=== PATIENT | female | born 1980 | race African-American/Black ===

== ENCOUNTER 2019-02-06 15:48 | Emergency (ER) | payer OTHER ==
--- NOTE | 2019-02-06 16:36 | ED Physician Documentation ---
PD HPI URI - Stated complaint Stated Complaint: COUGH/SOA - Chief complaint Chief Complaint: Resp - History obtained from History obtained from: Patient - History of Present Illness Timing - onset: How many weeks ago (1-2) Timing duration: Weeks (1-2) Associated symptoms: Fever Contributing factors: Travel. No: Sick contact, COPD / asthma Similar symptoms before: Diagnosis (had post cardiomyopathy with CHF in [place] this past year. Had EF 18%. has been doing well on beta court and diuretic. Had repeat U/S a month or so ago without much change in EF, per patient.) Recently seen: Not recently seen, Other (is moved from [place] to now [facility] (here on [facility]) and is due to be seen by [facility], with ECHO and lab tests to [place] done, this coming frit) Review of Systems Constitutional: denies: Fever, Chills, Myalgias Nose: denies: Rhinorrhea / runny nose, Congestion Cardiac: reports: Chest pain / pressure. denies: Palpitations, Pedal edema, Calf pain Respiratory: denies: Dyspnea, Cough, Hemoptysis GI: denies: Abdominal Pain, Nausea Musculoskeletal: denies: Neck pain, Back pain Neurologic: denies: Generalized weakness, Focal weakness, Numbness Endocrine: reports: Weight gain (10 lbs in the past month) PD PAST MEDICAL HISTORY - Past Medical History Cardiovascular: Congestive heart failure (due to cardiomyopathy. Delivered Dec last year, and had slowly worse) Respiratory: None Neuro: None Endocrine/Autoimmune: None GI: None - Present Medications Home Medications: Ambulatory Orders Medication Instructions Recorded Confirmed Albuterol Sulf [Ventolin Hfa 1 - 2 puffs INH Q4HR PRN #1 inhaler 02/06/19 Inhaler] Duloxetine HCl 02/06/19 Furosemide 60 mg PO BID 02/06/19 02/06/19 Spironolactone 02/06/19 - Allergies Allergies/Adverse Reactions: Allergies Allergy/AdvReac Type Severity Reaction Status Date / Time No Known Drug Allergies Allergy Verified 02/06/19 15:57 PD ED PE NORMAL - Vitals Vital signs reviewed: Yes - General General: Alert and oriented X 3, No acute distress, Well developed/nourished - HEENT HEENT: Ears normal, Moist mucous membranes, Pharynx benign - Neck Neck: Supple, no meningeal sign, No adenopathy, No JVD, No bruit - Cardiac Cardiac: RRR - Respiratory Respiratory: Clear bilaterally - Abdomen Abdomen: Soft, Non tender - Derm Derm: Normal color, Warm and dry - Extremities Extremities: Normal ROM s pain, No edema, No calf tenderness / cord - Neuro Neuro: Alert and oriented X 3, No motor deficit, Normal speech Results - Vitals Vitals: Vital Signs - 24 hr 02/06/19 02/06/19 15:53 18:39 Temperature 36.4 C L 36.9 C Heart Rate 91 90 Respiratory 18 16 Rate Blood Pressure 125/78 102/56 L O2 Saturation 100 100 Oxygen O2 Source Room air - EKG (time done) 17:39 Rate: Rate (enter#) (41) Rhythm: Sinus tachycardia, NSR. No: V tach [place]: Normal Intervals: Normal NM - Labs Labs: Laboratory Tests 02/06/19 02/06/19 02/06/19 17:55 17:55 17:55 WBC 5.6 RBC 3.71 L Hgb 10.6 L Hct 34.2 L MCV 92.2 MCH 28.6 MCHC 31.0 L RDW 13.6 Plt Count 198 MPV 11.5 H Neut # (Auto) 3.1 Lymph # (Auto) 1.9 [place] # (Auto) 0.3 Eos # (Auto) 0.3 Baso # (Auto) 0.0 Absolute Nucleated RBC 0.00 Nucleated RBC % 0.0 Sodium 139 Potassium 3.8 Chloride 105 Carbon Dioxide 29 Anion Gap 5.0 L BUN 14 Creatinine 0.8 Estimated GFR (MDRD) 98 Glucose 110 H Calcium 8.9 Magnesium 2.2 Total Bilirubin 0.5 AST 14 ALT 16 Alkaline Phosphatase 59 B-Natriuretic Peptide 22 Total Protein 7.0 Albumin 3.8 Globulin 3.2 Albumin/Globulin Ratio 1.2 Lipase 19 L TSH 02/06/19 17:55 WBC RBC Hgb Hct MCV MCH MCHC RDW Plt Count MPV Neut # (Auto) Lymph # (Auto) [place] # (Auto) Eos # (Auto) Baso # (Auto) Absolute Nucleated RBC Nucleated RBC % Sodium Potassium Chloride Carbon Dioxide Anion Gap BUN Creatinine Estimated GFR (MDRD) Glucose Calcium Magnesium Total Bilirubin AST ALT Alkaline Phosphatase B-Natriuretic Peptide Total Protein Albumin Globulin Albumin/Globulin Ratio Lipase TSH 0.88 - Rads (name of study) chest xray Radiology: Prelim report reviewed (no infiltrates nor effusion. ), See rad report PD MEDICAL DECISION MAKING - ED course Complexity details: re-evaluated patient, considered differential (consider exac of CHF, pneumonia, asthma, effusion. clinically low for PE nor DVT.), d/w patient Departure - Departure Disposition: 01 Home, Self Care Clinical Impression: cardiomyopathy Dyspnea Qualifiers: Dyspnea type: dyspnea on exertion Qualified Code(s): R06.09 - Other forms of dyspnea Condition: Stable Record reviewed to determine appropriate education?: Yes Instructions: ED Dyspnea Shortness of Breath Follow-Up: [facility] [Provider Group] Prescriptions: Albuterol Sulf [Ventolin Hfa Inhaler] 1 - 2 puffs INH Q4HR PRN #1 inhaler PRN Reason: Shortness Of Air/Wheezing Comments: Your chest x-ray is clear without any signs of fluid or pneumonia. Your blood tests including your electrolytes, kidney function and BNP are all normal. There is no signs of significant congestive heart failure. We are unable to do a ultrasound of your heart at this time given the weekend and time of day. Follow-up with the [place] next week as planned. Meanwhile you could increase your spironolactone to twice daily for the next 3 or 4 days, if there is some amount of increased fluid just not evident on the x- ray. Also increase your carvedilol from 6.25 mg twice daily to 6.25 mg in the morning and 12.5 mg in the evening until [facility]. Decrease it to the prior dose if you feel lightheaded or your blood pressures low. Your trouble breathing may be from cause other than the cardiomyopathy and CHF. I would suggest using an inhaler 1 or 2 puffs 3 or 4 times a day and see if that helps your breathing as well. Discharge Date/Time: 02/06/19 19:04
--- NOTE | 2019-02-06 16:51 | XRAY Report ---
Reason: cough Procedure Date: 02/06/2019 Accession Number: [id number] / [id number] Procedure: XR - Chest 2 View X-Ray CPT Code: 76182 FULL RESULT: EXAM: CHEST RADIOGRAPHY EXAM DATE: 02/06/2019 04:33 PM HISTORY: cough COMPARISON: NONE TECHNIQUE: Two Views FINDINGS: Lungs/Pleura: The lungs are clear. No consolidation, edema or pleural effusion. Cardiomediastinal silhouette: Unremarkable accounting for technique. Other: None. IMPRESSION: Normal two view chest. RADIA
[2019-02-06 17:58] LABS: BASOPHILS % (AUTO) 0.2 %; EOSINOPHILS # (AUTO) 0.3 10^3/uL (0.0-0.7); EOSINOPHILS % (AUTO) 5.7 %; HGB - HEMOGLOBIN 10.6 g/dL (12.0-16.0); LYMPHOCYTES # (AUTO) 1.9 10^3/uL (1.5-3.5); MEAN CORPUSCULAR HEMOGLOBIN 28.6 pg (27.0-31.0); MEAN CORPUSCULAR VOLUME 92.2 fL (81.0-99.0); MEAN PLATELET VOLUME 11.5 fL (7.9-10.8); MONOCYTES # (AUTO) 0.3 10^3/uL (0.0-1.0); MONOCYTES % (AUTO) 5.7 %; NEUTROPHILS # (AUTO) 3.1 10^3/uL (1.5-6.6); PLT - PLATELET COUNT 198 10^3/uL (130-450); RED BLOOD COUNT 3.71 10^6/uL (4.20-5.40); RED CELL DISTRIBUTION WIDTH 13.6 % (12.0-15.0); WHITE BLOOD COUNT 5.6 x10^3/uL (4.8-10.8)
[2019-02-06 18:11] LABS: ALBUMIN 3.8 g/dL (3.2-5.5); ALBUMIN/GLOBULIN RATIO 1.2 (1.0-2.2); BILIRUBIN,TOTAL 0.5 mg/dL (0.2-1.0); CALCIUM 8.9 mg/dL (8.5-10.3); CREATININE 0.8 mg/dL (0.4-1.0); MAGNESIUM 2.2 mg/dL (1.7-2.8)
[2019-02-06 18:40] VITALS: BP 102/56
== END 2019-02-06 19:04 | disposition home or self-care (01) ==
LOC: ED 15:48
DX: O90.3 Peripartum cardiomyopathy (principal); R06.09 Other forms of dyspnea; R00.0 Tachycardia, unspecified
CPT/HCPCS: 36415; 71046; 80053; 83690; 83735; 83880; 84443; 85025; 93005; 99283

== ENCOUNTER 2019-02-23 17:00 | Emergency (ER) | payer MEDICAID, OTHER ==
[2019-02-23 19:19] VITALS: BP 135/87
--- NOTE | 2019-02-23 19:42 | ED Physician Documentation ---
PD HPI URI - Stated complaint Stated Complaint: FLU SX - Chief complaint Chief Complaint: Resp - History obtained from History obtained from: Patient - History of Present Illness Timing - onset: How many days ago (few) Timing duration: Days (few) Timing details: Gradual onset, Still present Associated symptoms: Chills, Nasal congestion, Sinus pain, Dry cough, Dyspnea. No: Fever, Sore throat, NVD Contributing factors: COPD / asthma. No: Sick contact, Travel, Immunocompromised Similar symptoms before: Diagnosis (asthma symptoms with URIs) Recently seen: Not recently seen Review of Systems Constitutional: reports: Chills. 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 - Present Medications Home Medications: Ambulatory Orders Medication Instructions Recorded Confirmed Albuterol Sulf [Ventolin Hfa 1 - 2 puffs INH Q4HR PRN #1 inhaler 02/06/19 Inhaler] Duloxetine HCl 02/06/19 Furosemide 60 mg PO BID 02/06/19 02/06/19 Spironolactone 25 mg PO DAILY 02/06/19 Albuterol Sulf [Ventolin Hfa 1 - 2 puffs INH Q4HR PRN #1 inhaler 02/23/19 Inhaler] Amoxicillin 500 mg PO TID #21 capsule 02/23/19 Apixaban [Eliquis] 5 mg PO BID 02/23/19 02/23/19 Atorvastatin Calcium 80 mg PO DAILY 02/23/19 02/23/19 Carvedilol 6.25 mg PO BID 02/23/19 02/23/19 Cetirizine [ZyrTEC] 10 mg PO DAILY #30 tablet 02/23/19 Hydroxychloroquine Sulfate 200 mg PO DAILY 02/23/19 02/23/19 Sacubitril/Valsartan [Entresto 49 1 each PO 02/23/19 mg-51 mg Tablet] dexAMETHasone [Decadron] 4 mg PO DAILY #7 tablet 02/23/19 diphenhydrAMINE [Benadryl] 25 mg PO Q4-6H PRN #30 capsule 02/23/19 - Allergies Allergies/Adverse Reactions: Allergies Allergy/AdvReac Type Severity Reaction Status Date / Time No Known Drug Allergies Allergy Verified 02/23/19 17:08 - Social History Does the pt smoke?: No Smoking Status: Never smoker Does the pt drink ETOH?: No Does the pt have substance abuse?: No - Immunizations Immunizations are current?: Yes - POLST Patient has POLST: No PD ED PE NORMAL - Vitals Vital signs reviewed: Yes - General General: Alert and oriented X 3, No acute distress, Well developed/nourished - HEENT HEENT: Ears normal, Moist mucous membranes, Pharynx benign - Neck Neck: Supple, no meningeal sign, No adenopathy - Cardiac Cardiac: No murmur. No: RRR (regular but mild tachycardia) - Respiratory Respiratory: No: Clear bilaterally (no coarse sounds, but has mild diffuse wheezing. ) - Abdomen Abdomen: Soft, Non tender - Derm Derm: Normal color, Warm and dry - Extremities Extremities: No tenderness to palpate, Normal ROM s pain, No edema, No calf tenderness / cord Results - Vitals Vitals: Vital Signs - 24 hr 02/23/19 20:30 Respiratory 16 Rate Oxygen O2 Source Room air PD MEDICAL DECISION MAKING - ED course Complexity details: considered differential (URI with prior asthma, with some wheezing and congestion. ), d/w patient Departure - Departure Disposition: 01 Home, Self Care Clinical Impression: Upper respiratory infection Qualifiers: URI type: unspecified URI Qualified Code(s): J06.9 - Acute upper respiratory infection, unspecified Otitis media Qualifiers: Otitis media type: suppurative Chronicity: acute Laterality: right Recurrence: non-recurrent Spontaneous tympanic membrane rupture: without spontaneous rupture Qualified Code(s): H66.001 - Acute suppurative otitis media without spontaneous rupture of ear drum, right ear Condition: Stable Record reviewed to determine appropriate education?: Yes Instructions: ED Otitis Media Acute Adult, ED URI Viral W Wheezing Prescriptions: Albuterol Sulf [Ventolin Hfa Inhaler] 1 - 2 puffs INH Q4HR PRN #1 inhaler PRN Reason: Shortness Of Air/Wheezing Amoxicillin 500 mg PO TID #21 capsule Cetirizine [ZyrTEC] 10 mg PO DAILY #30 tablet dexAMETHasone [Decadron] 4 mg PO DAILY #7 tablet diphenhydrAMINE [Benadryl] 25 mg PO Q4-6H PRN #30 capsule PRN Reason: Nasal Congestion Comments: Use the cetirizine daily for your allergies and for the head cold. Decadron steroid daily for a week to help reduce inflammation and congestion. Add Benadryl if needed every 6 hours for acute relief of congestion and runny nose. Use the albuterol inhaler 2 puffs 4 times a day for the next 7 to 10 days and then as needed for wheezing. It does look to be some infection to the right ear as well so we will treated with amoxicillin 3 times a day for a week for potential bacterial cause. Recheck if not improving well over the next few days. Discharge Date/Time: 02/23/19 20:35
[2019-02-23] MEDS ORDERED: CHERRY SYRUP 10 ML UDC PO ONE (20:13)
[2019-02-23] MEDS ORDERED: DEXAMETHASONE 10 MG/ML VIAL PO STA (20:13)
[2019-02-23] MEDS ORDERED: AMOXICILLIN 250 MG CAPSULE PO STA (20:13)
[2019-02-23] MEDS ORDERED: CETIRIZINE 10 MG TABLET PO STA (20:13)
[2019-02-23] MEDS ORDERED: diphenhydrAMINE 25 MG CAPSULE PO STA (20:13)
== END 2019-02-23 20:35 | disposition home or self-care (01) ==
LOC: ED 17:00
DX: J06.9 Acute upper respiratory infection, unspecified (principal); J45.909 Unspecified asthma, uncomplicated; H66.001 Acute suppurative otitis media without spontaneous rupture of ear drum, right ear; Z79.01 Long term (current) use of anticoagulants
CPT/HCPCS: 99283; A9270

== ENCOUNTER 2019-05-25 02:27 | Emergency (ER) | payer MEDICAID, OTHER ==
--- NOTE | 2019-05-25 02:56 | ED Physician Documentation ---
PD HPI CHEST PAIN - Stated complaint Stated Complaint: CHEST PX, LEFT SIDE ARM PAIN,SOA - Chief complaint Chief Complaint: Cardiac - History obtained from History obtained from: Patient, Family - History of Present Illness Timing - onset: How many days ago (3) Timing - onset during: Rest Timing - duration: Days (3) Timing - details: Gradual onset, Still present Quality: Pressure, Tightness Location: Left chest Radiation: Neck, Left upper extremity Improved by: Rest Worsened by: Movement, Palpation, Position Associated symptoms: No: Shortness of air, Diaphoresis, Nausea, Vomiting, Feeling faint / dizzy, General Weakness, Palpitations, Cough Similar symptoms before: Has not had sx before Recently seen: Not recently seen - Additional information Additional information: 39-year-old female with a prior history of cardiomyopathy and TIA within this past year has developed some pain in her left neck radiating down to her left arm and hand. She has had this for about 3 days. She states that this is similar to what she has had in her lower back with pain radiating down her leg. She developed some pain in her anterior left chest today and became concerned about her heart and was [facility] come [facility] department for evaluation. The patient denies any shortness of breath diaphoresis or vomiting associated with this and states that she really feels like this is a pinched nerve in her neck. Review of Systems Constitutional: denies: Fever, Chills, Myalgias, Fatigue Eyes: denies: Decreased vision Ears: denies: Ear pain Nose: denies: Rhinorrhea / runny nose, Congestion Throat: denies: Sore throat Cardiac: reports: Chest pain / pressure. 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 Home Medications: Ambulatory Orders Medication Instructions Recorded Confirmed Duloxetine HCl 02/06/19 Furosemide 60 mg PO BID 02/06/19 02/06/19 Spironolactone 25 mg PO DAILY 02/06/19 Albuterol Sulf [Ventolin Hfa 1 - 2 puffs INH Q4HR PRN #1 inhaler 02/23/19 Inhaler] Apixaban [Eliquis] 5 mg PO BID 02/23/19 02/23/19 Atorvastatin Calcium 80 mg PO DAILY 02/23/19 02/23/19 Carvedilol 6.25 mg PO BID 02/23/19 02/23/19 Cetirizine [ZyrTEC] 10 mg PO DAILY #30 tablet 02/23/19 Hydroxychloroquine Sulfate 200 mg PO DAILY 02/23/19 02/23/19 Sacubitril/Valsartan [Entresto 49 1 each PO 02/23/19 mg-51 mg Tablet] Cyclobenzaprine [Flexeril] 10 mg PO TID PRN #20 tablet 05/25/19 Hydrocodone/Acetaminophen 1 - 2 each PO Q6H PRN #14 tablet 05/25/19 [Hydrocodon-Acetaminophen 5-325] - Allergies Allergies/Adverse Reactions: Allergies Allergy/AdvReac Type Severity Reaction Status Date / Time No Known Drug Allergies Allergy Verified 02/23/19 17:08 - Social History Does the pt smoke?: No Smoking Status: Never smoker Does the pt drink ETOH?: No Does the pt have substance abuse?: No - Immunizations Immunizations are current?: Yes - POLST Patient has POLST: No PD ED PE NORMAL - Vitals Vital signs reviewed: Yes (Hypertensive mild) - General General: Alert and oriented X 3, No acute distress, Well developed/nourished - HEENT HEENT: Atraumatic, PERRL, EOMI - Neck Neck: Supple, no meningeal sign, No bony TTP, Other (There is pain to the left neck over the sternocleidomastoid and the trapezius along the cervical spine on the left side. ) - Cardiac Cardiac: RRR, No murmur - Respiratory Respiratory: No respiratory distress, Clear bilaterally - Abdomen Abdomen: Normal bowel sounds, Soft, Non tender, Non distended, No organomegaly - Back Back: No CVA TTP, No spinal TTP - Derm Derm: Normal color, Warm and dry, No rash - Extremities Extremities: No deformity, No edema, Other (There is mild tenderness to the right shoulder and movement of the arm reproduces the pain the patient is experiencing. 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, No motor deficit, No sensory deficit, Normal speech Eye Opening: Spontaneous Motor: Obeys Commands Verbal: Oriented GCS Score: 15 - Psych Psych: Normal mood, Normal affect Results - Vitals Vitals: Vital Signs - 24 hr 05/25/19 05/25/19 02:30 04:18 Heart Rate 95 94 Respiratory 18 24 Rate Blood Pressure 139/88 H O2 Saturation 100 100 Oxygen O2 Source Room air - EKG (time done) 0239 Rate: Rate (enter#) (88) Ischemia: Q waves (inferior ) Compare to prior EKG: Unchanged from prior EKG (SPT 02-06-2019 no changes) Computer interpretation: Agree with computer - Labs Labs: Laboratory Tests 05/25/19 05/25/19 05/25/19 03:20 03:20 03:20 WBC 7.1 RBC 4.06 L Hgb 11.8 L Hct 37.1 MCV 91.4 MCH 29.1 MCHC 31.8 L RDW 13.6 Plt Count 201 MPV 12.2 H Neut # (Auto) 4.0 Lymph # (Auto) 2.3 [place] # (Auto) 0.6 Eos # (Auto) 0.2 Baso # (Auto) 0.0 Absolute Nucleated RBC 0.00 Nucleated RBC % 0.0 Sodium 142 Potassium 3.8 Chloride 106 Carbon Dioxide 28 Anion Gap 8.0 BUN 17 Creatinine 1.0 Estimated GFR (MDRD) 75 L Glucose 110 H Calcium 9.1 Total Bilirubin 0.5 AST 14 ALT 14 Alkaline Phosphatase 69 Troponin I High Sens 7.3 Total Protein 7.1 Albumin 4.0 Globulin 3.1 Albumin/Globulin Ratio 1.3 Lipase 26 - Rads (name of study) chest 2 view Radiology: Prelim report reviewed (Impression: Stable negative two-view chest radiography.), EMP read indepedently, See rad report PD MEDICAL DECISION MAKING - ED course Complexity details: reviewed old records, reviewed results, re-evaluated patient, considered differential, d/w patient, d/w family ED course: 39-year-old female with pain in her neck radiating down her arm appears to have cervical radiculopathy. She has some pain into her chest and has a tender chest wall. She has negative diagnostics here this morning with negative troponin and chest x-ray she is not in failure. She is treated in the emergency department with dexamethasone and Toradol. She had some relief with this with localization of the pain to the top of the shoulder. She continues to have pain and is administered Flexeril and Vicodin here in the emergency department. Departure - Departure Disposition: Home, Self Care Clinical Impression: Cervical radiculopathy Condition: Stable Instructions: ED Cervical Radiculopathy Follow-Up: [facility] [Provider Group] Prescriptions: Cyclobenzaprine [Flexeril] 10 mg PO TID PRN #20 tablet PRN Reason: Spasms Hydrocodone/Acetaminophen [Hydrocodon-Acetaminophen 5-325] 1 - 2 each PO Q6H PRN #14 tablet PRN Reason: pain
[2019-05-25] MEDS ORDERED: CHERRY SYRUP 10 ML UDC PO ONE (03:16)
[2019-05-25] MEDS ORDERED: DEXAMETHASONE 10 MG/ML VIAL PO STA (03:16)
[2019-05-25] MEDS ORDERED: KETOROLAC 60 MG/2 ML VIAL IM STA (03:17)
[2019-05-25 03:26] LABS: BASOPHILS % (AUTO) 0.4 %; EOSINOPHILS # (AUTO) 0.2 10^3/uL (0.0-0.7); EOSINOPHILS % (AUTO) 2.5 %; HGB - HEMOGLOBIN 11.8 g/dL (12.0-16.0); LYMPHOCYTES # (AUTO) 2.3 10^3/uL (1.5-3.5); LYMPHOCYTES % (AUTO) 32.8 %; MEAN CORPUSCULAR HEMOGLOBIN 29.1 pg (27.0-31.0); MEAN CORPUSCULAR HGB CONC 31.8 g/dL (32.0-36.0); MEAN CORPUSCULAR VOLUME 91.4 fL (81.0-99.0); MEAN PLATELET VOLUME 12.2 fL (7.9-10.8); MONOCYTES # (AUTO) 0.6 10^3/uL (0.0-1.0); MONOCYTES % (AUTO) 7.9 %; PLT - PLATELET COUNT 201 10^3/uL (130-450); RED BLOOD COUNT 4.06 10^6/uL (4.20-5.40); RED CELL DISTRIBUTION WIDTH 13.6 % (12.0-15.0); WHITE BLOOD COUNT 7.1 x10^3/uL (4.8-10.8)
[2019-05-25 03:40] LABS: ALBUMIN/GLOBULIN RATIO 1.3 (1.0-2.2); BILIRUBIN,TOTAL 0.5 mg/dL (0.2-1.0); CALCIUM 9.1 mg/dL (8.5-10.3); TOTAL PROTEIN 7.1 g/dL (6.7-8.2)
--- NOTE | 2019-05-25 04:04 | XRAY Report ---
Reason: chest pain Procedure Date: 05/25/2019 Accession Number: [id number] / [id number] Procedure: XR - Chest 2 View X-Ray CPT Code: 92547 Final Report FULL RESULT: EXAM: CHEST RADIOGRAPHY EXAM DATE: 05/25/2019 03:35 AM. CLINICAL HISTORY: Chest pain. COMPARISON: CHEST 2 VIEW 02/06/2019 4:26 PM. TECHNIQUE: 2 views. FINDINGS: Lungs/Pleura: No focal opacities evident. No pleural effusion. No pneumothorax. Normal volumes. Mediastinum: Heart and mediastinal contours are unremarkable. Other: None. IMPRESSION: Stable negative 2-view chest radiography. RADIA
[2019-05-25] MEDS ORDERED: CYCLOBENZAPRINE 10 MG TABLET PO STA (04:22)
[2019-05-25] MEDS ORDERED: HYDROcod/ACETAM 5/325 MG TABLET PO STA (04:22)
[2019-05-25 05:03] VITALS: BP 128/74
== END 2019-05-25 05:01 | disposition home or self-care (01) ==
LOC: ED 02:27
DX: M54.12 Radiculopathy, cervical region (principal); R07.89 Other chest pain; Z86.73 Personal history of transient ischemic attack (TIA), and cerebral infarction without residual deficits; Z79.01 Long term (current) use of anticoagulants
CPT/HCPCS: 36415; 71046; 80053; 83690; 84484; 85025; 93005; 96372; 99284; A9270

== ENCOUNTER 2019-07-26 11:11 | Emergency (ER) | payer OTHER ==
[2019-07-26 12:00] LABS: RAPID STREP SCREEN Negative (Negative)
--- NOTE | 2019-07-26 12:09 | XRAY Report ---
Reason: cough Procedure Date: 07/26/2019 Accession Number: [id number] / [id number] Procedure: XR - Chest 2 View X-Ray CPT Code: 55752 Final Report FULL RESULT: EXAM: CHEST RADIOGRAPHY 2 VIEWS EXAM DATE: 07/26/2019. CLINICAL HISTORY: Cough. COMPARISON: PA and lateral chest done 05/25/2019. TECHNIQUE: PA and lateral views. FINDINGS: Lungs/Pleura: Mild hyperinflation. No consolidation or mass. Normal vasculature. No pleural fluid or pneumothorax. Mediastinum: Cardiac and mediastinal contours are normal for the technique and the slightly high position of the diaphragms. Bones: Normal. IMPRESSION: Mild pulmonary hypoinflation. Otherwise normal examination. RADIA
--- NOTE | 2019-07-26 12:56 | ED Physician Documentation ---
PD HPI URI - Stated complaint Stated Complaint: CONGESTED/SORE THROAT - Chief complaint Chief Complaint: Resp - History obtained from History obtained from: Patient - History of Present Illness Timing - onset: How many days ago (2) Timing duration: Days (2) Timing details: Abrupt onset, Still present Associated symptoms: Chills, Nasal congestion, Dry cough, NVD (nausea without vomiting nor diarrhea.), Other (having migraine type headache today) Contributing factors: Sick contact (all her kids are sick the past severald ays) Improves by: Rest Similar symptoms before: Diagnosis (has had migraines in the past, for which she takes Imitrex and antiemetic. Had been [place] b[place] in [place] before [place] here recently.) Recently seen: Not recently seen Review of Systems Constitutional: reports: Chills, Myalgias. denies: Fever Nose: reports: Rhinorrhea / runny nose, Congestion Throat: denies: Sore throat Respiratory: reports: Cough GI: reports: Nausea. denies: Abdominal Pain, Vomiting, Diarrhea Musculoskeletal: denies: Neck pain Neurologic: reports: Headache. 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 - Present Medications Home Medications: Ambulatory Orders Medication Instructions Recorded Confirmed Duloxetine HCl 02/06/19 Furosemide 60 mg PO BID 02/06/19 02/06/19 Spironolactone 25 mg PO DAILY 02/06/19 Albuterol Sulf [Ventolin Hfa 1 - 2 puffs INH Q4HR PRN #1 inhaler 02/23/19 Inhaler] Apixaban [Eliquis] 5 mg PO BID 02/23/19 02/23/19 Atorvastatin Calcium 80 mg PO DAILY 02/23/19 02/23/19 Carvedilol 6.25 mg PO BID 02/23/19 02/23/19 Cetirizine [ZyrTEC] 10 mg PO DAILY #30 tablet 02/23/19 Hydroxychloroquine Sulfate 200 mg PO DAILY 02/23/19 02/23/19 Sacubitril/Valsartan [Entresto 49 1 each PO 02/23/19 mg-51 mg Tablet] Cyclobenzaprine [Flexeril] 10 mg PO TID PRN #20 tablet 05/25/19 Hydrocodone/Acetaminophen 1 - 2 each PO Q6H PRN #14 tablet 05/25/19 [Hydrocodon-Acetaminophen 5-325] Benzonatate [Tessalon Perle] 100 - 200 mg PO TID PRN #30 capsule 07/26/19 Ondansetron Odt [Zofran] 4 mg TL Q6H PRN #10 tablet 07/26/19 SUMAtriptan succinate [Sumatriptan 50 mg PO BID PRN #9 tablet 07/26/19 Succinate] dexAMETHasone [Decadron] 4 mg PO DAILY #5 tablet 07/26/19 - Allergies Allergies/Adverse Reactions: Allergies Allergy/AdvReac Type Severity Reaction Status Date / Time No Known Drug Allergies Allergy Verified 07/26/19 11:27 - Social History Does the pt smoke?: No Smoking Status: Never smoker Does the pt drink ETOH?: No Does the pt have substance abuse?: No - Immunizations Immunizations are current?: Yes - POLST Patient has POLST: No PD ED PE NORMAL - Vitals Vital signs reviewed: Yes - General General: Alert and oriented X 3, No acute distress, Well developed/nourished - HEENT HEENT: PERRL (some light sensiive), Ears normal, Moist mucous membranes, Pharynx benign - Neck Neck: Supple, no meningeal sign, No adenopathy - Cardiac Cardiac: RRR, No murmur - Respiratory Respiratory: Clear bilaterally - Abdomen Abdomen: Soft, Non tender - Derm Derm: Normal color, Warm and dry - Neuro Neuro: Alert and oriented X 3, 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, No motor deficit, No sensory deficit, Normal speech Eye Opening: Spontaneous Motor: Obeys Commands Verbal: Oriented GCS Score: 15 - Psych Psych: Normal mood Results - Vitals Vitals: Vital Signs - 24 hr 07/26/19 07/26/19 11:25 13:16 Temperature 36.4 C L Heart Rate 98 94 Respiratory 18 18 Rate Blood Pressure 126/66 151/89 H O2 Saturation 100 100 Oxygen O2 Source Room air - Labs Labs: Laboratory Tests 07/26/19 11:47 Group A Strep Rapid Negative - Rads (name of study) No standard instances Radiology: Prelim report reviewed (no infiltrates), See rad report PD MEDICAL DECISION MAKING - ED course Complexity details: re-evaluated patient (feels much improved with Imitrex, Toradol, Zofran. ), considered differential (has URI symptom and has triggered migraine, and does not have Imitrex/antiemetics since moving here. ), d/w patient Departure - Departure Disposition: 01 Home, Self Care Clinical Impression: Migraine Qualifiers: Migraine type: without aura Status migrainosus presence: without status migrainosus Intractability: not intractable Qualified Code(s): G43.009 - Renny zee without aura, not intractable, without status migrainosus Upper respiratory infection Qualifiers: URI type: unspecified URI Qualified Code(s): J06.9 - Acute upper respiratory infection, unspecified Condition: Stable Record reviewed to determine appropriate education?: Yes Instructions: ED Upper Resp Infec No Abx Tx Prescriptions: Benzonatate [Tessalon Perle] 100 - 200 mg PO TID PRN #30 capsule PRN Reason: Cough dexAMETHasone [Decadron] 4 mg PO DAILY #5 tablet Ondansetron Odt [Zofran] 4 mg TL Q6H PRN #10 tablet PRN Reason: Nausea / Vomiting SUMAtriptan succinate [Sumatriptan Succinate] 50 mg PO BID PRN #9 tablet PRN Reason: Migraine Comments: Stay well-hydrated. Tylenol if needed for fevers and pains. This sounds like a viral illness. Your chest x-ray is clear. Use the Decadron steroid daily for 5 days to reduce inflammation in the airways. Tessalon if needed for cough suppression For the migraines, use the sumatriptan as needed for recurrent headaches and can combine it with the ondansetron if needed for nausea. Forms: Activity restrictions Discharge Date/Time: 07/26/19 14:41
[2019-07-26 13:16] VITALS: BP 151/89
[2019-07-26] MEDS ORDERED: KETOROLAC 60 MG/2 ML VIAL IM STA (13:30)
[2019-07-26] MEDS ORDERED: SUMAtriptan 6 MG/0.5 ML VIAL SUBQ STA (13:30)
[2019-07-26] MEDS ORDERED: BENZONATATE 100 MG CAPSULE PO STA (13:30)
[2019-07-26] MEDS ORDERED: DEXAMETHASONE 10 MG/ML VIAL PO STA (13:30)
[2019-07-26] MEDS ORDERED: ONDANSETRON ODT 4 MG TABLET TL STA (13:30)
[2019-07-26] MEDS ORDERED: CHERRY SYRUP 10 ML UDC PO ONE (13:30)
== END 2019-07-26 14:41 | disposition home or self-care (01) ==
LOC: ED 11:11
DX: G43.009 Migraine without aura, not intractable, without status migrainosus (principal); J06.9 Acute upper respiratory infection, unspecified
CPT/HCPCS: 71046; 87070; 87077; 87430; 96372; 99284; A9270; Q0162

== ENCOUNTER 2019-10-20 22:12 | Emergency (ER) | payer MEDICAID, OTHER ==
--- NOTE | 2019-10-21 00:06 | CT Report ---
Reason: eye injury Procedure Date: 10/20/2019 Accession Number: [id number] / [id number] Procedure: CT - ORBITS WO CPT Code: Final Report FULL RESULT: EXAM: CT ORBITS WITHOUT CONTRAST EXAM DATE: 10/20/2019 11:43 PM. CLINICAL HISTORY: Eye injury. COMPARISONS: None. TECHNIQUE: Thin-section axial images were acquired of the orbits without contrast. Post-processing: Coronal and sagittal reformats. Other: None. In accordance with CT protocol optimization, one or more of the following dose reduction techniques were utilized for this exam: automated exposure control, adjustment of mA and/or KV based on patient size, or use of iterative reconstructive technique. FINDINGS: Soft Tissue: Unremarkable. Orbits: Symmetric and unremarkable. Bones: No fracture or bone lesion. Temporomandibular Joints: The temporomandibular joints are symmetric and normally located. Sinuses: No fluid levels are seen. Minimal mucosal thickening in bilateral ethmoid and left frontal sinuses. Other: None. IMPRESSION: 1. No acute abnormality seen. RADIA
--- NOTE | 2019-10-21 00:18 | ED Physician Documentation ---
PD HPI OPHTHO - Stated complaint Stated Complaint: EYE PX - Chief complaint Chief Complaint: Heent - History obtained from History obtained from: Patient - Additional information Additional information: Patient comes emergency department complaining of left eye pain after her [id number] "stabbed her eye" with a knitting needle. Patient states that the needle went up under her upper lid and that she noticed some mildly blood-tinged tears initially. Patient states that her vision is close to what it normally is, but seems slightly blurred. Patient states that she noticed up under the lid that she has a red satya on the surface of her globe. She states she also has a pain radiating around her periorbital area and into her jew. Patient states she does not wear contact lenses. She was not having any eye symptoms prior to this happening this afternoon. No other complaints at this time. Review of Systems Ten Systems: 10 systems reviewed and negative Constitutional: reports: Reviewed and negative Eyes: reports: Irritation Ears: reports: Reviewed and negative Nose: reports: Reviewed and negative Throat: reports: Reviewed and negative Cardiac: reports: Reviewed and negative Respiratory: reports: Reviewed and negative GI: reports: Reviewed and negative : reports: Reviewed and negative Skin: reports: Reviewed and negative Musculoskeletal: reports: Reviewed and negative Neurologic: reports: Reviewed and negative Psychiatric: reports: Reviewed and negative Endocrine: reports: Reviewed and negative Immunocompromised: reports: Reviewed and negative PD PAST MEDICAL HISTORY - Past Medical History Past Medical History: Yes Cardiovascular: Congestive heart failure Respiratory: None Neuro: Migraines Endocrine/Autoimmune: None GI: None HEENT: Chronic vision loss Psych: Depression, Post traumatic stress disorder - Past Surgical History 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 - Present 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 Home Medications: Ambulatory Orders Medication Instructions Recorded Confirmed Duloxetine HCl 02/06/19 Furosemide 60 mg PO BID 02/06/19 02/06/19 Spironolactone 25 mg PO DAILY 02/06/19 Albuterol Sulf [Ventolin Hfa 1 - 2 puffs INH Q4HR PRN #1 inhaler 02/23/19 Inhaler] Apixaban [Eliquis] 5 mg PO BID 02/23/19 02/23/19 Atorvastatin Calcium 80 mg PO DAILY 02/23/19 02/23/19 Carvedilol 6.25 mg PO BID 02/23/19 02/23/19 Cetirizine [ZyrTEC] 10 mg PO DAILY #30 tablet 02/23/19 Hydroxychloroquine Sulfate 200 mg PO DAILY 02/23/19 02/23/19 Sacubitril/Valsartan [Entresto 49 1 each PO 02/23/19 mg-51 mg Tablet] Cyclobenzaprine [Flexeril] 10 mg PO TID PRN #20 tablet 05/25/19 Hydrocodone/Acetaminophen 1 - 2 each PO Q6H PRN #14 tablet 05/25/19 [Hydrocodon-Acetaminophen 5-325] Benzonatate [Tessalon Perle] 100 - 200 mg PO TID PRN #30 capsule 07/26/19 Ondansetron Odt [Zofran] 4 mg TL Q6H PRN #10 tablet 07/26/19 SUMAtriptan succinate [Sumatriptan 50 mg PO BID PRN #9 tablet 07/26/19 Succinate] dexAMETHasone [Decadron] 4 mg PO DAILY #5 tablet 07/26/19 - Allergies Allergies/Adverse Reactions: Allergies Allergy/AdvReac Type Severity Reaction Status Date / Time No Known Drug Allergies Allergy Verified 10/20/19 22:28 - Social History Does the pt smoke?: No Smoking Status: Never smoker Does the pt drink ETOH?: No Does the pt have substance abuse?: No - Immunizations Immunizations are current?: Yes - POLST Patient has POLST: No PD ED PE NORMAL - Vitals Vital signs reviewed: Yes - General General: Alert and oriented X 3, No acute distress - HEENT HEENT: Atraumatic, PERRL, EOMI, Moist mucous membranes, Other (Patient has no corneal trauma. She has an approximately 3 mm diameter area of subconjunctival hemorrhage in the superior recess of the anterior scleral area, approximately 12 mm superior to the superior border of the iris. There is no active bleeding. Fluorescein exam is negative. There is no external lid trauma. No internal lid trauma.) - Neck Neck: Supple, no meningeal sign - Respiratory Respiratory: No respiratory distress - Derm Derm: Normal color, Warm and dry, No rash - Extremities Extremities: Other (Grossly normal) - Neuro Neuro: Alert and oriented X 3, Other (Grossly intact) - Psych Psych: Normal mood, Normal affect Results - Vitals Vitals: Vital Signs - 24 hr 10/20/19 22:15 Temperature 36.5 C Heart Rate 103 H Respiratory 18 Rate Blood Pressure 150/103 H O2 Saturation 98 Oxygen O2 Source Room air PD MEDICAL DECISION MAKING - ED course Complexity details: reviewed results, re-evaluated patient, considered diff erential, d/w patient ED course: I discussed with the patient that her fluorescein exam is negative and that she has only a subconjunctival hemorrhage far away from the "seeing part" of her eye without evidence of globe rupture. Given the patient's feeling of pain radiating deeply from the area of injury, I have performed a CT of the orbits, which is unremarkable. Feel the patient stable for discharge home. We have discussed home management of the symptoms, as well as the usual indications for return. Departure - Departure Disposition: 01 Home, Self Care Clinical Impression: Subconjunctival hemorrhage Qualifiers: Laterality: left Qualified Code(s): H11.32 - Conjunctival hemorrhage, left eye Condition: Stable Instructions: ED Eye Injury Subconj Hemorrhage Comments: The floor seen, or dye test, looks good, and does not show any penetrating injury to your eye. Additionally, your CT scan also looks good and does not show any structural injury. Most likely, there is some inflammation and pain that is related to the trauma of the knitting needle poking your eye. However, this has not done any significant damage, and should be expected to resolve on its own. Do not use any contact lenses until your eye is feeling better. You may use ibuprofen or Tylenol, as needed for discomfort.
[2019-10-21 00:45] VITALS: BP 147/89
== END 2019-10-21 00:45 | disposition home or self-care (01) ==
LOC: ED 22:12
DX: H11.32 Conjunctival hemorrhage, left eye (principal); W26.8XXA Contact with other sharp object(s), not elsewhere classified, initial encounter; Y93.D1 Activity, knitting and crocheting
CPT/HCPCS: 70480; 99284

== ENCOUNTER 2020-08-12 14:08 | Outpatient (CLI) | payer OTHER | END 2020-08-12 14:09 | disposition critical access hospital (66) | LOC: EMS 14:08 | PROVIDERS: ATTEND Emergency Medicine | DX: R07.9 Chest pain, unspecified (principal); T50.906A Underdosing of unspecified drugs, medicaments and biological substances, initial encounter; Z91.138 Patient's unintentional underdosing of medication regimen for other reason | CPT/HCPCS: A0425; A0429 ==

== ENCOUNTER 2020-08-12 14:25 | Emergency (ER) | payer MEDICAID, OTHER ==
--- NOTE | 2020-08-12 14:28 | ED Physician Documentation ---
PD HPI CHEST PAIN - Stated complaint Stated Complaint: CHEST PX - Chief complaint Chief Complaint: Cardiac - History obtained from History obtained from: Patient - History of Present Illness Timing - onset: How many hours ago (1), How many years ago Timing - onset during: Rest Timing - duration: Hours (1) Timing - details: Abrupt onset Pain level max: 8 Pain level now: 6 Quality: Sharp Location: Substernal Radiation: No: Jaw, Neck, Back, Abdominal, Left upper extremity, Right upper extremity Improved by: Nothing Worsened by: Other (nothing) Associated symptoms: No: Shortness of air, Diaphoresis, Nausea, Vomiting, Feeling faint / dizzy, General Weakness, Palpitations, Cough Recently seen: Not recently seen - Additional information Additional information: states history of cardiomyopathy. She states CVA x 2. She is on eliquis, but has not been taking it regularly. States she remembers ever 2-3 days. Patient states she has sharp stabbing central chest pain today. Worse with movement, laughing. Nothing makes it better. Review of Systems Ten Systems: 10 systems reviewed and negative Constitutional: denies: Fever, Chills Throat: denies: Sore throat Cardiac: denies: Palpitations, Pedal edema, Calf pain Respiratory: denies: Cough GI: denies: Nausea, Vomiting, Diarrhea Skin: denies: Rash Musculoskeletal: denies: Neck pain, Back pain Neurologic: denies: Headache PD PAST MEDICAL HISTORY - Past Medical History Cardiovascular: Congestive heart failure Respiratory: None Neuro: Migraines Endocrine/Autoimmune: None GI: None HEENT: Chronic vision loss Psych: Depression, Post traumatic stress disorder - Past Surgical History 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 - Present Medications Home Medications: Ambulatory Orders Medication Instructions Recorded Confirmed Duloxetine HCl 80 mg PO DAILY 02/06/19 08/12/20 Furosemide 60 mg PO BID 02/06/19 08/12/20 Spironolactone 25 mg PO DAILY 02/06/19 08/12/20 Apixaban [Eliquis] 5 mg PO BID 02/23/19 08/12/20 Atorvastatin Calcium 80 mg PO DAILY 02/23/19 08/12/20 Carvedilol 12.5 mg PO BID 02/23/19 08/12/20 Cetirizine [ZyrTEC] 10 mg PO DAILY #30 tablet 02/23/19 08/12/20 Sacubitril/Valsartan [Entresto 49 0.5 each PO BID 02/23/19 08/12/20 mg-51 mg Tablet] Acetaminophen [Aphen] 650 mg PO QID PRN 08/12/20 08/12/20 Cholecalciferol (Vitamin D3) 25 mcg PO DAILY 08/12/20 08/12/20 [Vitamin D3] Riboflavin (Vitamin B2) 400 mg PO DAILY 08/12/20 08/12/20 [Riboflavin] traZODone [Desyrel] 50 mg PO HS 08/12/20 08/12/20 - Allergies Allergies/Adverse Reactions: Allergies Allergy/AdvReac Type Severity Reaction Status Date / Time No Known Drug Allergies Allergy Verified 08/12/20 14:39 - Social History Does the pt smoke?: No Smoking Status: Never smoker Does the pt drink ETOH?: No Does the pt have substance abuse?: No - Immunizations Immunizations are current?: Yes - POLST Patient has POLST: No PD ED PE NORMAL - Vitals Vital signs reviewed: Yes - General General: Alert and oriented X 3, No acute distress - HEENT HEENT: Moist mucous membranes - Neck Neck: Supple, no meningeal sign - Cardiac Cardiac: RRR, Other (Tender to palpation across the anterior chest wall. Reproduces her pain.) - Respiratory Respiratory: No respiratory distress, Clear bilaterally - Abdomen Abdomen: Soft, Non tender, Non distended - Derm Derm: Warm and dry - Extremities Extremities: No edema, No calf tenderness / cord - Neuro Neuro: Alert and oriented X 3 - Psych Psych: Normal mood, Normal affect Results - Vitals Vitals: Vital Signs - 24 hr 08/12/20 08/12/20 08/12/20 14:30 14:43 15:09 Temperature 36.9 C 36.6 C Heart Rate 93 83 102 H Respiratory 18 28 H 20 Rate Blood Pressure 158/100 H 158/100 H 129/88 H O2 Saturation 99 100 100 08/12/20 08/12/20 08/12/20 16:00 16:30 16:48 Temperature Heart Rate 95 92 98 Respiratory 18 21 17 Rate Blood Pressure 132/85 H 140/91 H 135/93 H O2 Saturation 94 97 98 Oxygen O2 Source Room air - EKG (time done) 1436 Rate: Rate (enter#) (82) Rhythm: NSR [place]: Normal Intervals: Normal VA QRS: Normal Ischemia: Normal ST segments, Q waves (III, aVF) - Labs Labs: Laboratory Tests 08/12/20 08/12/20 08/12/20 14:54 14:54 14:54 WBC 6.2 RBC 4.23 Hgb 11.9 L Hct 37.8 MCV 89.4 MCH 28.1 MCHC 31.5 L RDW 14.0 Plt Count 217 MPV 11.7 H Neut # (Auto) 3.2 Lymph # (Auto) 2.0 [place]anner # (Auto) 0.4 Eos # (Auto) 0.6 Baso # (Auto) 0.0 Absolute Nucleated RBC 0.00 Nucleated RBC % 0.0 Sodium 137 Potassium 3.3 L Chloride 99 L Carbon Dioxide 27 Anion Gap 11.0 BUN 13 Creatinine 0.9 Estimated GFR (MDRD) 84 L Glucose 110 H Calcium 8.8 Total Bilirubin 0.5 AST 17 ALT 17 Alkaline Phosphatase 82 Troponin I High Sens 7.4 Total Protein 7.4 Albumin 3.8 Globulin 3.6 Albumin/Globulin Ratio 1.1 Lipase 19 L - Rads (name of study) cxr Radiology: Prelim report reviewed, EMP read contemporaneously, See rad report (no acute disease) PD MEDICAL DECISION MAKING - ED course Complexity details: reviewed results, re-evaluated patient, considered differential (No ST elevation MT, no aortic dissection, no PE, no tension pneumothorax, no aortic aneurysm), d/w patient ED course: 40-year-old female with chest pain today. Atypical. Given Toradol. Symptoms resolved. No evidence of ACS, PE, pneumothorax, dissection. We will continue supportive care and have her follow-up with her doctor for further care. Recommend that she take her medications as prescribed. Patient counseled regarding signs and symptoms for which I believe and urgent re-evaluation would be necessary. Patient with good understanding of and agreement to plan and is comfortable going home at this time This document was made in part using voice recognition software. While efforts are made to proofread this document, sound alike and grammatical errors may occur. Just prior to discharge, the patient complained of itching to her bilateral eyes ongoing for the past several weeks with clear drainage. Appears to have allergic conjunctivitis. Recommend Zaditor eyedrops. No evidence of bacterial infection. Departure - Departure Disposition: 01 Home, Self Care Clinical Impression: Chest pain Qualifiers: Chest pain type: unspecified Qualified Code(s): R07.9 - Chest pain, unspecified Condition: Good Instructions: ED Chest Pain Atypical Unkn Cause Follow-Up: Provider,Other [Primary Care Provider] - Within 1 week Comments: Please continue your current medications at home. Follow-up with your doctor for further care. Return if you worsen. This should improve over the next day or 2. Your testing is normal tonight. Discharge Date/Time: 08/12/20 17:07
[2020-08-12] MEDS ORDERED: KETOROLAC 30 MG/ML VIAL IVP STA (14:47)
[2020-08-12 15:00] LABS: BASOPHILS % (AUTO) 0.6 %; EOSINOPHILS # (AUTO) 0.6 10^3/uL (0.0-0.7); EOSINOPHILS % (AUTO) 10.2 %; HCT - HEMATOCRIT 37.8 % (37.0-47.0); HGB - HEMOGLOBIN 11.9 g/dL (12.0-16.0); LYMPHOCYTES % (AUTO) 31.7 %; MEAN CORPUSCULAR HEMOGLOBIN 28.1 pg (27.0-31.0); MEAN CORPUSCULAR HGB CONC 31.5 g/dL (32.0-36.0); MEAN CORPUSCULAR VOLUME 89.4 fL (81.0-99.0); MEAN PLATELET VOLUME 11.7 fL (7.9-10.8); MONOCYTES # (AUTO) 0.4 10^3/uL (0.0-1.0); NEUTROPHILS # (AUTO) 3.2 10^3/uL (1.5-6.6); NEUTROPHILS % (AUTO) 51.2 %; PLT - PLATELET COUNT 217 10^3/uL (130-450); RED BLOOD COUNT 4.23 10^6/uL (4.20-5.40); WHITE BLOOD COUNT 6.2 x10^3/uL (4.8-10.8)
[2020-08-12 15:17] LABS: ALBUMIN 3.8 g/dL (3.2-5.5); ALBUMIN/GLOBULIN RATIO 1.1 (1.0-2.2); BILIRUBIN,TOTAL 0.5 mg/dL (0.2-1.0); CALCIUM 8.8 mg/dL (8.5-10.3); CREATININE 0.9 mg/dL (0.4-1.0); POTASSIUM 3.3 mmol/L (3.5-5.0); TOTAL PROTEIN 7.4 g/dL (6.7-8.2)
--- NOTE | 2020-08-12 15:19 | XRAY Report ---
PROCEDURE: Chest 1 View X-Ray INDICATIONS: Chest Pain TECHNIQUE: One view of the chest was acquired. COMPARISON: CXR 07/26/2019. FINDINGS: Surgical changes and devices: None. Lungs and pleura: No pleural effusions or pneumothorax. Lungs are clear. Mediastinum: Mediastinal contours appear normal. Heart size is normal. Bones and chest wall: No suspicious bony lesions. Overlying soft tissues appear unremarkable. IMPRESSION: No acute cardiopulmonary abnormality. Reviewed by: Carlos Alberto Peraza MD on 08/12/2020 2:18 PM GHANSHYAM Approved by: Carlos Alberto Peraza MD on 08/12/2020 2:18 PM GHANSHYAM Station ID: [id number]
[2020-08-12 16:49] VITALS: BP 135/93
== END 2020-08-12 17:07 | disposition home or self-care (01) ==
LOC: EDUNIT# → ED 14:25
DX: R07.89 Other chest pain (principal); Z86.73 Personal history of transient ischemic attack (TIA), and cerebral infarction without residual deficits; Z79.01 Long term (current) use of anticoagulants
CPT/HCPCS: 36415; 80053; 83690; 84484; 85025; 93005; 96374; 99284

== ENCOUNTER 2021-08-01 21:18 | Emergency (ER) | payer OTHER ==
[2021-08-01 21:30] VITALS: BP 154/99
--- NOTE | 2021-08-01 23:42 | ED Physician Documentation ---
History of Present Illness - Stated complaint Stated Complaint: CONGEST/BILAT EAR ITCH/PHLEGM - Chief complaint Chief Complaint: Resp - History obtained from History obtained from: Patient - History of Present Illness Timing: How many days ago (5) - Additonal information Additional information: symptoms began 5 days ago with what patient describes as allergy symptoms; itching sensation of eyes, nose, throat. Initially clear rhinorrhea which has subsequently become thick and discolored (yellow). She has developed ear pain, predominantly right-sided. Cough productive of thick, yellow sputum. Denies shortness of breath, fever. She is COVID vaccinated without booster. 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 - Present Medications Home Medications: Ambulatory Orders Medication Instructions Recorded Confirmed Duloxetine HCl 80 mg PO DAILY 02/06/19 08/01/21 Furosemide 60 mg PO BID 02/06/19 08/01/21 Spironolactone 25 mg PO DAILY 02/06/19 08/01/21 Apixaban [Eliquis] 5 mg PO BID 02/23/19 08/01/21 Atorvastatin Calcium 80 mg PO DAILY 02/23/19 08/01/21 Sacubitril/Valsartan [Entresto 49 0.5 each PO BID 02/23/19 08/01/21 mg-51 mg Tablet] Acetaminophen [Aphen] 650 mg PO QID PRN 08/12/20 08/01/21 Cholecalciferol (Vitamin D3) 25 mcg PO DAILY 08/12/20 08/01/21 [Vitamin D3] Riboflavin (Vitamin B2) 400 mg PO DAILY 08/12/20 08/01/21 [Riboflavin] traZODone [Desyrel] 50 mg PO HS 08/12/20 08/01/21 Amox/Clav 875/125 [Augmentin 1 tablet PO Q12H 7 Days #14 tablet 08/02/21 875/125 Tab] - Allergies Allergies/Adverse Reactions: Allergies Allergy/AdvReac Type Severity Reaction Status Date / Time No Known Drug Allergies Allergy Verified 08/01/21 21:30 - Social History Does the pt smoke?: No Smoking Status: Never smoker Does the pt drink ETOH?: No Does the pt have substance abuse?: No - Immunizations Immunizations are current?: Yes - POLST Patient has POLST: No PD ED PE NORMAL - Vitals Vital signs reviewed: Yes - General General: Alert and oriented X 3, No acute distress, Well developed/nourished - HEENT HEENT: Moist mucous membranes, Pharynx benign - Cardiac Cardiac: RRR, No murmur - Respiratory Respiratory: No respiratory distress, Clear bilaterally (initially there are scattered rhonchi but CTA after she coughs) Results - Vitals Vitals: Oxygen O2 Source Room air PD MEDICAL DECISION MAKING - ED course Complexity details: considered differential, d/w patient ED course: emergent testing not indicated at this time. NAD with unremarkable exam. On lung auscultation, the first few breaths correlated with rhonchi but she then coughed (and this was productive of yellow sputum) and subsequently her lungs are CTA. H+P c/w bronchitis and sinusitis. Given augmentin in ED and rx sent to her pharm acy. Departure - Departure Disposition: 01 Home, Self Care Clinical Impression: Bronchitis Instructions: ED Upper Resp Infec Abx Tx Follow-Up: ZAHEER PEREZ MD [Primary Care Provider] - Prescriptions: Amox/Clav 875/125 [Augmentin 875/125 Tab] 1 tablet PO Q12H 7 Days #14 tablet Comments: A prescription for the antibiotic (augmentin) has been electronically submitted to [facility] in [place]. Discharge Date/Time: 08/02/21 00:16
[2021-08-01] MEDS ORDERED: AMOX/CLAV 875 MG/125 MG TABLET PO STA (23:59)
== END 2021-08-02 00:16 | disposition home or self-care (01) ==
LOC: ED 21:18
DX: J40 Bronchitis, not specified as acute or chronic (principal); I50.9 Heart failure, unspecified; Z79.01 Long term (current) use of anticoagulants
CPT/HCPCS: 99282; 99283; A9270

== ENCOUNTER 2022-03-25 20:14 | Emergency (ER) | payer OTHER ==
[2022-03-25] MEDS ORDERED: ACETAMINOPHEN 325 MG TABLET PO STA (23:41)
[2022-03-26] MEDS ORDERED: CYCLOBENZAPRINE 10 MG TABLET PO STA (00:27)
--- NOTE | 2022-03-26 00:28 | ED Physician Documentation ---
History of Present Illness - Stated complaint Stated Complaint: SHOULDER/BACK PX - Chief complaint Chief Complaint: Back Pain - History obtained from History obtained from: Patient - Additonal information Additional information: 41-year-old woman with past medical history of chronic back pain, Jeff cordova on Eliquis, presents with right shoulder pain and left lower hip pain ongoing for the past 2 weeks, worsening over the past couple days.Aching, constant, gradual onset, worse with twisting and lifting. Left hip pain sometimes radiates down the leg. Denies urinary or fecal incontinence, numbness or weakness. 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 - Present Medications Home Medications: Ambulatory Orders Medication Instructions Recorded Confirmed Duloxetine HCl 80 mg PO DAILY 02/06/19 08/01/21 Furosemide 60 mg PO BID 02/06/19 08/01/21 Spironolactone 25 mg PO DAILY 02/06/19 08/01/21 Apixaban [Eliquis] 5 mg PO BID 02/23/19 08/01/21 Atorvastatin Calcium 80 mg PO DAILY 02/23/19 08/01/21 Sacubitril/Valsartan [Entresto 49 0.5 each PO BID 02/23/19 08/01/21 mg-51 mg Tablet] Acetaminophen [Aphen] 650 mg PO QID PRN 08/12/20 08/01/21 Cholecalciferol (Vitamin D3) 25 mcg PO DAILY 08/12/20 08/01/21 [Vitamin D3] Riboflavin (Vitamin B2) 400 mg PO DAILY 08/12/20 08/01/21 [Riboflavin] traZODone [Desyrel] 50 mg PO HS 08/12/20 08/01/21 Amox/Clav 875/125 [Augmentin 1 tablet PO Q12H 7 Days #14 tablet 08/02/21 875/125 Tab] Cyclobenzaprine [Flexeril] 10 mg PO TID PRN 6 Days #20 tablet 03/26/22 - Allergies Allergies/Adverse Reactions: Allergies Allergy/AdvReac Type Severity Reaction Status Date / Time No Known Drug Allergies Allergy Verified 03/25/22 20:32 - Social History Does the pt smoke?: No Smoking Status: Never smoker Does the pt drink ETOH?: No Does the pt have substance abuse?: No - Immunizations Immunizations are current?: Yes - POLST Patient has POLST: No PD ED PE NORMAL - Vitals Vital signs reviewed: Yes - General General: Alert and oriented X 3, No acute distress, Well developed/nourished - HEENT HEENT: Atraumatic, PERRL, EOMI, Moist mucous membranes, Pharynx benign - Neck Neck: Other (Discomfort along right neck and shoulder in a trapezius muscle distribution.) - Back Back: No spinal TTP, Other (Left lower back discomfort with palpation in a muscular distribution.) - Derm Derm: Normal color, Warm and dry - Extremities Extremities: No deformity, Other (Full range of motion of right shoulder. nontender. 2+ radial pulse RUE) Results - Vitals Vitals: Vital Signs - 24 hr 03/25/22 20:28 Temperature 37.6 C Heart Rate 111 H Respiratory 16 Rate Blood Pressure 151/100 H O2 Saturation 99 Oxygen O2 Source Room air PD MEDICAL DECISION MAKING - ED course ED course: 41-year-old woman with history of chronic pain presents with right shoulder pain and left lower back pain for the past 2 weeks. Pain can be localized on exam in a muscular distribution. Advised symptomatic care including muscle relaxer. Patient is unable to take NSAIDs on a regular basis due to her A. fib medications. Discussed that she will need to follow-up with her primary care provider for possible further testing and management. Return precautions given. Departure - Departure Disposition: 01 Home, Self Care Clinical Impression: Chronic pain, Shoulder pain, Lower back pain Condition: Stable Instructions: Flexeril Prescriptions: Cyclobenzaprine [Flexeril] 10 mg PO TID PRN 6 Days #20 tablet PRN Reason: Spasms Comments: You are seen in the emergency department for evaluation of shoulder and back pain. You should follow-up with your primary care provider for possible referral for further testing or treatment. A muscle relaxer, Flexeril was prescribed to you in the emergency department as well as given while you are here. Please do not drive or operate heavy machinery while taking this medication. Return to the emergency department if you have any new or worsening symptoms or other concerns.
[2022-03-26 00:37] VITALS: BP 151/104
== END 2022-03-26 00:50 | disposition home or self-care (01) ==
LOC: ED 20:14
DX: M25.511 Pain in right shoulder (principal); M25.552 Pain in left hip; I48.91 Unspecified atrial fibrillation; Z79.01 Long term (current) use of anticoagulants; G89.29 Other chronic pain; M54.50 Low back pain, unspecified
CPT/HCPCS: 99282; 99283; A9270

== ENCOUNTER 2022-07-13 13:48 | Outpatient (CLI) | payer OTHER | END 2022-07-13 13:49 | disposition EMS.NT | LOC: EMS 13:48 | DX: M54.9 Dorsalgia, unspecified (principal) ==

== ENCOUNTER 2023-01-05 21:35 | Emergency (ER) | payer OTHER ==
[2023-01-05 21:55] VITALS: BP 148/83; O2SAT 98
[2023-01-05] MEDS ORDERED: ACETAMINOPHEN 500 MG TABLET PO STA (22:13)
[2023-01-05] MEDS ORDERED: MOLNUPIRAVIR PREPACK PO STA (22:15)
--- NOTE | 2023-01-05 22:56 | ED Physician Documentation ---
History of Present Illness - Stated complaint Stated Complaint: C+ - Chief complaint Chief Complaint: General - History obtained from History obtained from: Patient - Additonal information Additional information: Patient is a 42-year-old female with a history of strokes (on Eliquis) presenting for evaluation of positive COVID test today. Patient reports that her daughter recently returned home from a camp in [place] and was positive for COVID. Patient tested this morning and was positive. She had errands to run in regards to her housing and reports being asymptomatic until this afternoon when she started feeling headache, body aches and generalized fatigue. She denies cough. She Denies labored breathing. Patient reports that she has come to the emergency department tonight because she is interested in antiviral therapy. She is on a number of medications and has her medications with her. Review of Systems Constitutional: reports: Myalgias. 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 - Present Medications Home Medications: Ambulatory Orders Medication Instructions Recorded Confirmed Duloxetine HCl 80 mg PO DAILY 02/06/19 08/01/21 Furosemide 60 mg PO BID 02/06/19 08/01/21 Spironolactone 25 mg PO DAILY 02/06/19 08/01/21 Apixaban [Eliquis] 5 mg PO BID 02/23/19 08/01/21 Atorvastatin Calcium 80 mg PO DAILY 02/23/19 08/01/21 Sacubitril/Valsartan [Entresto 49 0.5 each PO BID 02/23/19 08/01/21 mg-51 mg Tablet] Acetaminophen [Aphen] 650 mg PO QID PRN 08/12/20 08/01/21 Cholecalciferol (Vitamin D3) 25 mcg PO DAILY 08/12/20 08/01/21 [Vitamin D3] Riboflavin (Vitamin B2) 400 mg PO DAILY 08/12/20 08/01/21 [Riboflavin] traZODone [Desyrel] 50 mg PO HS 08/12/20 08/01/21 Amox/Clav 875/125 [Augmentin 1 tablet PO Q12H 7 Days #14 tablet 08/02/21 875/125 Tab] Cyclobenzaprine [Flexeril] 10 mg PO TID PRN 6 Days #20 tablet 03/26/22 - Allergies Allergies/Adverse Reactions: Allergies Allergy/AdvReac Type Severity Reaction Status Date / Time No Known Drug Allergies Allergy Verified 03/25/22 20:32 - Social History Does the pt smoke?: No Smoking Status: Never smoker Does the pt drink ETOH?: No Does the pt have substance abuse?: No - Immunizations Immunizations are current?: Yes - POLST Patient has POLST: No PD ED PE NORMAL - General General: Alert and oriented X 3, No acute distress, Well developed/nourished - HEENT HEENT: Atraumatic, PERRL, EOMI, Moist mucous membranes, Pharynx benign - Neck Neck: Supple, no meningeal sign, No bony TTP - Cardiac Cardiac: RRR, No murmur - Respiratory Respiratory: No respiratory distress, Clear bilaterally - Abdomen Abdomen: Soft, Non tender, Non distended - Derm Derm: Warm and dry - Extremities Extremities: No edema, No calf tenderness / cord - Neuro Neuro: Alert and oriented X 3, distribution coordinator 2-12 intact, No motor deficit, No sensory deficit, Normal speech, Other (Normal unassisted gait) Results - Vitals Vitals: Vital Signs - 24 hr 01/05/23 21:40 Temperature 36.6 C Heart Rate 110 H Respiratory 20 Rate Blood Pressure 148/83 H O2 Saturation 98 Oxygen O2 Source Room air PD Medical Decision Making - ED course Complexity details: re-evaluated patient ED course: Patient is a 42-year-old who tested positive for COVID-19 today and is wanting antiviral therapy. Initially noted to be tachycardic in triage but that appeared improved at the time of my evaluation. Lung sounds are clear. No signs of labored breathing.Patient reports headache, body aches. Neuro exam is normal and she is ambulating here. No signs or symptoms to suggest meningitis or subarachnoid hemorrhage. Patient is on a number of medications and there are some contraindications to Paxlovid. I did offer a molnupiravir which she is agreeable in taking. Discussed continued supportive care as well as molnupiravir and she was given a prepack for this. Patient aware of quarantine recommendations and also advised on strict return precautions. Departure - Departure Disposition: 01 Home, Self Care Clinical Impression: COVID-19 Condition: Stable Instructions: ED Viral Syndrome Comments: You have tested positive for COVID-19 and should quarantine per current CDC recommendations. You have been started on molnupiravir which is an antiviral treatment to help prevent serious complications related to COVID-19. Please take this medication as directed. Please continue with acetaminophen as needed for fevers or pains and stay hydrated. Get plenty of rest. Return to the emergency department with any new or worsening symptoms. Forms: PCP List Discharge Date/Time: 01/05/23 23:22
--- OUTSIDE RECORDS SUMMARY | 2023-01-05 23:10 | EXTERNAL MEDICAL SUMMARY RPT | Continuity of Care Document ---
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 Name Role Phone Crew, Elvie Unavailable Unavailable Allergies and Intolerances date description facility reaction severity (no date) No Known Drug Allergies [facility] (no rekha ction) (no severity) Problems date description facility 2022-10-12 00:00 Laryngitis [facility] 2022-10-12 00:00 Viral upper respiratory tract i nfection [facility] Procedures date description facility 2022-10-12 00:00 X-ray of chest, two views [facility] Results/Labs test date facility value unit notes Social History date description facility 2022-10-12 00:00 Tobacco smoking consumption [facility] Vital Signs date measurement value units 2022-10-12 00:00 BMI 32.9 kg/m2 2022-10-12 00:00 BP_diastolic 87 mmHg 2022-10-12 00:00 BP_systolic 147 mmHg 2022-10-12 00:00 heart_rate 89 /min 2022-10-12 00:00 height_metric 160.02 cm 2022-10-12 00:00 height_standard 63 in 2022-10-12 00:00 o2_saturation 100 % 2022-10-12 00:00 respiration_rate 18 /min 2022-10-12 00:00 temperature_metric 36.83 C 2022-10-12 00:00 temperature_standard 98.3 F 2022-10-12 00:00 weight_metric 84.36 kg 2022-10-12 00:00 weight_standard 185.98 lb
== END 2023-01-05 23:22 | disposition home or self-care (01) ==
LOC: ED 21:35
DX: U07.1 COVID-19 (principal)
CPT/HCPCS: 99282; 99283; A9270; J3490